=== PATIENT | female | born 1990 | race African-American/Black ===

== ENCOUNTER 2019-01-21 19:34 | Emergency (ER) | payer OTHER ==
[~2019-01-21] VITALS: Ht 144.8 cm; Wt 72.6 kg
--- NOTE | 2019-01-21 20:40 | PHYS DOC ---
Past Medical History Past Medical History: No Pertinent History (DAYANA SHAW APRN) Past Surgical History: (DAYANA SHAW APRN) Alcohol Use: None Drug Use: None (DAYANA SHAW APRN) Adult General Chief Complaint Chief Complaint: ABDOMINAL PAIN HPI HPI Patient is a 28 year old AA female who presents to the ER with complaints of lower abdominal pain, low back pain, increased urinary frequency, and cloudy urine that has gradually increased over the last 2 weeks. In addition, pt reports fatigue. She denies any irregular vaginal discharge, vaginal odor, or concerns of STI. She reports her LMP was 2 weeks ago and she has had a BTL. She denies any fever, nausea, vomiting, diarrhea, constipation, cough, or pelvic pain. She states the pain is located below her umbilicus and reports that the pain is sharp in nature, currently a 9/10 and the only thing that alleviates her pain is applying pressure to the area. Her last BM was 1-2 days ago and was normal per pt. (DAYANA SHAW APRN) Review of Systems Review of Systems Constitutional: Denies fever or chills [] Eyes: Denies changes HENT: Denies nasal congestion or sore throat [] Respiratory: Denies cough or shortness of breath [] Cardiovascular: No additional information not addressed in HPI [] GI: See HPI : See HPI Musculoskeletal: See HPI Integument: Denies rash or skin lesions [] Neurologic: Denies headache (DAYANA SHAW APRN) Current Medications Current Medications Current Medications Medications (Trade) Dose Ordered Sig/Khari Start Time Stop Time Status Last Admin Dose Admin Info (CONTRAST GIVEN -- Rx MONITORING) 1 each PRN DAILY PRN 01/21/19 22:00 01/22/19 00:37 DC Iohexol (Omnipaque 300 Mg/ml) 75 ml 1X ONCE 01/21/19 22:30 01/21/19 22:31 DC 01/21/19 22:12 75 ML Morphine Sulfate (Morphine Sulfate) 4 mg STK-MED ONCE 01/21/19 23:56 01/21/19 23:57 DC Ondansetron HCl (Zofran) 4 mg 1X ONCE 01/22/19 00:30 01/22/19 00:31 DC 01/21/19 23:58 4 MG (CAMMY BEE DO) Allergies Allergies Allergies Coded Allergies Type Severity Reaction Last Updated Verified No Known Drug Allergies 04/30/14 No (CAMMY BEE DO) Physical Exam Physical Exam Constitutional: Well developed, well nourished, no acute distress, non-toxic appearance. [] HENT: Normocephalic, atraumatic, bilateral external ears normal, oropharynx moist, nose normal. [] Eyes: conjunctiva normal, no discharge. [] Neck: Normal range of motion, no tenderness, supple, no stridor. [] Cardiovascular: Heart rate regular rhythm, no murmur [] Lungs & Thorax: Bilateral breath sounds clear to auscultation [] Abdomen: Bowel sounds normal, soft, no masses, no pulsatile masses; TTP superior to umbilicus Skin: Warm, dry, no erythema, no rash. [] Back: No CVA tenderness. [] Extremities: No cyanosis, ROM intact, no edema. [] Neurologic: Alert and oriented X 3, no focal deficits noted. [] Psychologic: Affect normal, judgement normal, mood normal. [] (DAYANA SHAW APRN) Current Patient Data Vital Signs Vital Signs Date Time Temp Pulse Resp B/P (MAP) Pulse Ox O2 Delivery O2 Flow Rate FiO2 01/21/19 23:58 16 100 Room Air 01/21/19 23:40 71 107/53 (71) 01/21/19 19:45 98.2 98.2 (CAMMY BEE DO) Lab Values Laboratory Tests Test 01/21/19 20:08 01/21/19 21:00 01/21/19 21:08 White Blood Count 4.1 x10^3/uL (4.0-11.0) Red Blood Count 4.26 x10^6/uL (3.50-5.40) Hemoglobin 11.6 g/dL (12.0-15.5) L Hematocrit 35.3 % (36.0-47.0) L Mean Corpuscular Volume 83 fL (79-100) Mean Corpuscular Hemoglobin 27 pg (25-35) Mean Corpuscular Hemoglobin Concent 33 g/dL (31-37) Red Cell Distribution Width 14.5 % (11.5-14.5) Platelet Count 189 x10^3/uL (140-400) Neutrophils (%) (Auto) 36 % (31-73) Lymphocytes (%) (Auto) 49 % (24-48) H Monocytes (%) (Auto) 7 % (0-9) Eosinophils (%) (Auto) 6 % (0-3) H Basophils (%) (Auto) 1 % (0-3) Neutrophils # (Auto) 1.5 x10^3uL (1.8-7.7) L Lymphocytes # (Auto) 2.0 x10^3/uL (1.0-4.8) Monocytes # (Auto) 0.3 x10^3/uL (0.0-1.1) Eosinophils # (Auto) 0.3 x10^3/uL (0.0-0.7) Basophils # (Auto) 0.0 x10^3/uL (0.0-0.2) Sodium Level 140 mmol/L (136-145) Potassium Level 3.6 mmol/L (3.5-5.1) Chloride Level 103 mmol/L (98-107) Carbon Dioxide Level 28 mmol/L (21-32) Anion Gap 9 (6-14) Blood Urea Nitrogen 16 mg/dL (7-20) Creatinine 0.8 mg/dL (0.6-1.0) Estimated GFR (Cockcroft-Gault) 104.9 BUN/Creatinine Ratio 20 (6-20) Glucose Level 83 mg/dL (70-99) Calcium Level 9.0 mg/dL (8.5-10.1) Total Bilirubin 0.5 mg/dL (0.2-1.0) Aspartate Amino Transferase (AST) 24 U/L (15-37) Alanine Aminotransferase (ALT) 50 U/L (14-59) Alkaline Phosphatase 55 U/L (46-116) Total Protein 7.9 g/dL (6.4-8.2) Albumin 3.8 g/dL (3.4-5.0) Albumin/Globulin Ratio 0.9 (1.0-1.7) L Lipase 118 U/L (73-393) Urine Collection Type Unknown Urine Color Yellow Urine Clarity Cloudy Urine pH 6.5 Urine Specific Zanoni 1.025 Urine Protein Negative mg/dL (NEG-TRACE) Urine Glucose (UA) Negative mg/dL (NEG) Urine Ketones (Stick) Negative mg/dL (NEG) Urine Blood Negative (NEG) Urine Nitrite Negative (NEG) Urine Bilirubin Negative (NEG) Urine Urobilinogen Dipstick 0.2 mg/dL (0.2 mg/dL) Urine Leukocyte Esterase Negative (NEG) Urine RBC Occ /HPF (0-2) Urine WBC Occ /HPF (0-4) Urine Squamous Epithelial Cells Mod /LPF Urine Bacteria 0 /HPF (0-FEW) Urine Mucus Mod /LPF POC Urine HCG, Qualitative Hcg negative (Negative) Laboratory Tests 01/21/19 20:08 Laboratory Tests 01/21/19 20:08 (CAMMY BEE DO) Lab Values Laboratory Tests Test 01/21/19 20:08 01/21/19 21:00 01/21/19 21:08 White Blood Count 4.1 x10^3/uL (4.0-11.0) Red Blood Count 4.26 x10^6/uL (3.50-5.40) Hemoglobin 11.6 g/dL (12.0-15.5) L Hematocrit 35.3 % (36.0-47.0) L Mean Corpuscular Volume 83 fL (79-100) Mean Corpuscular Hemoglobin 27 pg (25-35) Mean Corpuscular Hemoglobin Concent 33 g/dL (31-37) Red Cell Distribution Width 14.5 % (11.5-14.5) Platelet Count 189 x10^3/uL (140-400) Neutrophils (%) (Auto) 36 % (31-73) Lymphocytes (%) (Auto) 49 % (24-48) H Monocytes (%) (Auto) 7 % (0-9) Eosinophils (%) (Auto) 6 % (0-3) H Basophils (%) (Auto) 1 % (0-3) Neutrophils # (Auto) 1.5 x10^3uL (1.8-7.7) L Lymphocytes # (Auto) 2.0 x10^3/uL (1.0-4.8) Monocytes # (Auto) 0.3 x10^3/uL (0.0-1.1) Eosinophils # (Auto) 0.3 x10^3/uL (0.0-0.7) Basophils # (Auto) 0.0 x10^3/uL (0.0-0.2) Sodium Level 140 mmol/L (136-145) Potassium Level 3.6 mmol/L (3.5-5.1) Chloride Level 103 mmol/L (98-107) Carbon Dioxide Level 28 mmol/L (21-32) Anion Gap 9 (6-14) Blood Urea Nitrogen 16 mg/dL (7-20) Creatinine 0.8 mg/dL (0.6-1.0) Estimated GFR (Cockcroft-Gault) 104.9 BUN/Creatinine Ratio 20 (6-20) Glucose Level 83 mg/dL (70-99) Calcium Level 9.0 mg/dL (8.5-10.1) Total Bilirubin 0.5 mg/dL (0.2-1.0) Aspartate Amino Transferase (AST) 24 U/L (15-37) Alanine Aminotransferase (ALT) 50 U/L (14-59) Alkaline Phosphatase 55 U/L (46-116) Total Protein 7.9 g/dL (6.4-8.2) Albumin 3.8 g/dL (3.4-5.0) Albumin/Globulin Ratio 0.9 (1.0-1.7) L Lipase 118 U/L (73-393) Urine Collection Type Unknown Urine Color Yellow Urine Clarity Cloudy Urine pH 6.5 Urine Specific Zanoni 1.025 Urine Protein Negative mg/dL (NEG-TRACE) Urine Glucose (UA) Negative mg/dL (NEG) Urine Ketones (Stick) Negative mg/dL (NEG) Urine Blood Negative (NEG) Urine Nitrite Negative (NEG) Urine Bilirubin Negative (NEG) Urine Urobilinogen Dipstick 0.2 mg/dL (0.2 mg/dL) Urine Leukocyte Esterase Negative (NEG) Urine RBC Occ /HPF (0-2) Urine WBC Occ /HPF (0-4) Urine Squamous Epithelial Cells Mod /LPF Urine Bacteria 0 /HPF (0-FEW) Urine Mucus Mod /LPF POC Urine HCG, Qualitative Hcg negative (Negative) Laboratory Tests 01/21/19 20:08 Laboratory Tests 01/21/19 20:08 (DAYANA SHAW APRN) EKG EKG [] (DAYANA SHAW APRN) Radiology/Procedures Radiology/Procedures PROCEDURE: CT ABD PELV W/ IV CONTRST ONLY EXAM: CT Abdomen and Pelvis with IV contrast CLINICAL HISTORY: umbilical pain x 2 weeks COMPARISON: none TECHNIQUE: Helical CT of the abdomen and pelvis was performed following the administration of intravenous contrast. Axial, coronal and sagittal reformatted images were generated. PQRS compliance statement - One or more of the following individualized dose reduction techniques were utilized for this study: 1. Automated exposure control 2. Adjustment of the mA and/or kV according to patient size 3. Use of iterative reconstruction technique FINDINGS: Lower chest: 4 mm left lower lobe fissural lung nodule (image 1) is seen. Lung bases are otherwise clear. Abdomen and Pelvis: No focal liver lesion. Gallbladder is normal. No biliary ductal dilatation. Spleen is unremarkable. Adrenal glands and pancreas are unremarkable. Symmetric nephrograms. No focal renal lesion. No hydronephrosis. Appendix is normal. No small or large bowel dilatation. Moderate colonic stool content. Bladder wall thickening, cystitis. No abdominal pelvic ascites. Small fat-containing periumbilical hernia is seen. Bones: No evidence for acute cardiopulmonary process. IMPRESSION: 1. Small fat-containing periumbilical hernia is seen. 2. Gallbladder wall thickening may be seen with cystitis. 3. Moderate colonic stool content is seen. No evidence for bowel obstruction. 4. The appendix is normal.[] (DAYANA SHAW ETHICS MANAGER) Course & Med Decision Making Course & Med Decision Making Pertinent Labs and Imaging studies reviewed. (See chart for details) Dx: periumbilical hernia, abdominal pain DDx: UTI, SBO, IBS, CT revealed periumbilical hernia. Follow up with Dr. Barreto for further evaluation and treatment. Patient verbalized an understanding of home care, medications, follow-up, and return to ED instructions and was in agreement with the plan of care. [] (DAYANA SHAW ETHICS MANAGER) Dragon Disclaimer Dragon Disclaimer This electronic medical record was generated, in whole or in part, using a voice recognition dictation system. (DAYANA SHAW ETHICS MANAGER) Departure Departure Impression: Primary Impression: Periumbilical hernia Additional Impressions: Abdominal pain Constipation Disposition: HOME, SELF-CARE Condition: STABLE Referrals: SAILAJA BARRETO MD Patient Instructions: Hernia Additional Instructions: Increase fluids and fiber in diet to help with constipation. May try 1 capful of over the counter miralax daily to help with constipation. Follow up with Dr. Barreto for further evaluation and treatment of your hernia. Return to the ER if symptoms worsen. Attending Signature Attending Signature I have reviewed the PA/TOBACCO PREVENTION HEALTH EDUCATOR's note and plan of care. I was available for consultation as needed at all times during the patient's visit in the emergency department. I agree with the clinical impression, plan and disposition. (CAMMY BEE DO) Problem Qualifiers Additional Impressions: Abdominal pain Abdominal location: periumbilical Qualified Codes: R10.33 - Periumbilical pain Constipation Constipation type: unspecified constipation type Qualified Codes: K59.00 - Constipation, unspecified DAYANA SHAW APRN Jan 21, 2019 20:40 CAMMY BEE DO Jan 24, 2019 10:12
[2019-01-21 21:12] LABS: BILIRUBIN,URINE NEGATIVE (NEG); CLARITY,URINE CLOUDY; COLOR,URINE YELLOW; NITRITE,URINE NEGATIVE (NEG); PH,URINE 6.5; PROTEIN,URINE NEGATIVE (NEG-TRACE); UROBILINOGEN,URINE 0.2 mg/dL (0.2 mg/dL)
[2019-01-21 21:39] LABS: BACTERIA,URINE 0 /HPF (0-FEW); RBC,URINE OCC /HPF (0-2); SQUAMOUS EPITHELIAL CELL,UR MOD /LPF; WBC,URINE OCC /HPF (0-4)
[2019-01-21 21:50] LABS: BASO % 1 % (0-3); EOS # 0.3 x10^3/uL (0.0-0.7); EOS % 6 % (0-3); HEMATOCRIT 35.3 % (36.0-47.0); HEMOGLOBIN 11.6 g/dL (12.0-15.5); LYMPH % 49 % (24-48); MEAN CORPUSCULAR HEMOGLOBIN 27 pg (25-35); MEAN CORPUSCULAR HGB CONC 33 g/dL (31-37); MEAN CORPUSCULAR VOLUME 83 fL (79-100); MONO # 0.3 x10^3/uL (0.0-1.1); MONO % 7 % (0-9); NEUT # 1.5 x10^3uL (1.8-7.7); NEUT % 36 % (31-73); PLATELET COUNT 189 x10^3/uL (140-400); RED BLOOD COUNT 4.26 x10^6/uL (3.50-5.40); RED CELL DISTRIBUTION WIDTH 14.5 % (11.5-14.5); WHITE BLOOD COUNT 4.1 x10^3/uL (4.0-11.0)
[2019-01-21 21:58] LABS: CREATININE 0.8 mg/dL (0.6-1.0); GFR 104.9; POTASSIUM 3.6 mmol/L (3.5-5.1)
[2019-01-21] MEDS ORDERED: CONTRAST GIVEN. MC PRN (22:00)
[2019-01-21 22:04] LABS: ALBUMIN 3.8 g/dL (3.4-5.0); ALBUMIN/GLOBULIN RATIO 0.9 (1.0-1.7); TOTAL BILIRUBIN 0.5 mg/dL (0.2-1.0); TOTAL PROTEIN 7.9 g/dL (6.4-8.2)
[2019-01-21] MEDS ORDERED: IOHEXOL 300 MG/ML 100ML VIAL. IV ONE (22:30)
--- NOTE | 2019-01-21 23:03 | RAD ---
EXAM: CT Abdomen and Pelvis with IV contrast CLINICAL HISTORY: umbilical pain x 2 weeks COMPARISON: none TECHNIQUE: Helical CT of the abdomen and pelvis was performed following the administration of intravenous contrast. Axial, coronal and sagittal reformatted images were generated. PQRS compliance statement - One or more of the following individualized dose reduction techniques were utilized for this study: 1. Automated exposure control 2. Adjustment of the mA and/or kV according to patient size 3. Use of iterative reconstruction technique FINDINGS: Lower chest: 4 mm left lower lobe fissural lung nodule (image 1) is seen. Lung bases are otherwise clear. Abdomen and Pelvis: No focal liver lesion. Gallbladder is normal. No biliary ductal dilatation. Spleen is unremarkable. Adrenal glands and pancreas are unremarkable. Symmetric nephrograms. No focal renal lesion. No hydronephrosis. Appendix is normal. No small or large bowel dilatation. Moderate colonic stool content. Bladder wall thickening, cystitis. No abdominal pelvic ascites. Small fat-containing periumbilical hernia is seen. Bones: No evidence for acute cardiopulmonary process. IMPRESSION: 1. Small fat-containing periumbilical hernia is seen. 2. Gallbladder wall thickening may be seen with cystitis. 3. Moderate colonic stool content is seen. No evidence for bowel obstruction. 4. The appendix is normal. Electronically signed by: Massimo Weston MD (01/21/2019 11:00 PM) [facility]
[2019-01-21 23:40] VITALS: BP 107/53
[2019-01-21] MEDS ORDERED: MORPHINE SULFATE 4 MG/ML VIAL. ONE (23:56)
[2019-01-22] MEDS ORDERED: ONDANSETRON PF 4 MG/2 ML VIAL. IV ONE (00:30)
[2019-01-22] MEDS ORDERED: MORPHINE SULFATE 4 MG/ML VIAL. IV ONE (00:30)
== END 2019-01-22 | disposition home or self-care (01) ==
LOC: ER 19:34
DX: K42.9 Umbilical hernia without obstruction or gangrene (principal); K59.00 Constipation, unspecified
CPT/HCPCS: 36415; 74177; 80053; 81001; 81025; 83690; 85025; 96374; 96375; 99284; J2270; J2405; Q9967

== ENCOUNTER 2019-11-03 22:22 | Emergency (ER) | payer MEDICAID, OTHER ==
[2019-11-03 22:32] VITALS: BP 125/79
--- NOTE | 2019-11-03 23:13 | RAD ---
PA and lateral chest x-ray HISTORY: Cough. FINDINGS: Heart size normal. Mediastinal silhouette is normal. No pneumothorax, pulmonary opacities or pleural effusions. Bones are unremarkable. IMPRESSION: No acute process. Electronically signed by: Marco A Lee MD (11/03/2019 11:10 PM) [facility]
[2019-11-03] MEDS ORDERED: DEXAMETHASONE 4 MG TABLET PO ONE (23:15)
[2019-11-03] MEDS ORDERED: IPRATRPIUM/ALBUTEROL 0.5/2.5MG 3 ML NEBU. NEB ONE (23:15)
[2019-11-03] MEDS ORDERED: ALBU2.5V8 IH (23:21)
[2019-11-03] MEDS ORDERED: PRED20TA PO (23:21)
[2019-11-03] MEDS ORDERED: BENZ100C PO (23:21)
--- NOTE | 2019-11-03 23:22 | PHYS DOC ---
Past Medical History Past Medical History: No Pertinent History Past Surgical History: , Tubal ligation Additional Information: Nonsmoker Alcohol Use: None Drug Use: Marijuana Adult General Chief Complaint Chief Complaint: COUGH HPI HPI 29-year-old female presents with 3 day history of nonproductive cough and wheezing. Patient does report some left upper chest wall discomfort which is reproducible with palpation. Patient reports she had previously been diagnosed with influenza and started on Tamiflu a few weeks ago. Patient reports her symptoms did improve until 3 days ago. Patient denies tobacco smoking. Denies trauma. Denies . Denies leg swelling or calf tenderness. Denies history of DVT or PE. Review of Systems Review of Systems Constitutional: Denies fever or chills; reports generalized malaise Eyes: Denies redness or eye pain HENT: Reports nasal congestion; denies sore throat Respiratory: Reports cough and wheezing Cardiovascular: Ports left upper chest wall pain; denies palpitations GI: Denies abdominal pain, nausea, or vomiting : Denies dysuria or hematuria Musculoskeletal: Denies back pain or joint pain Integument: Denies rash or skin lesions Neurologic: Denies headache, focal weakness or sensory changes Complete systems were reviewed and found to be within normal limits, except as documented in this note. Current Medications Current Medications Current Medications Medications (Trade) Dose Ordered Sig/Khari Start Time Stop Time Status Last Admin Dose Admin Albuterol/ Ipratropium (Duoneb) 3 ml 1X ONCE 11/03/19 23:15 11/03/19 23:16 DC 11/03/19 23:22 3 ML Dexamethasone (Decadron) 10 mg 1X ONCE 11/03/19 23:15 11/03/19 23:16 DC Allergies Allergies Allergies Coded Allergies Type Severity Reaction Last Updated Verified No Known Drug Allergies 04/30/14 No Physical Exam Physical Exam Constitutional: Well developed, well nourished, no acute distress, non-toxic appearance HENT: Normocephalic, atraumatic, oropharynx moist Eyes: Conjunctiva normal, no discharge Neck: Normal range of motion, no tenderness, supple Cardiovascular: Heart rate normal, regular rhythm Lungs & Thorax: Bilateral breath sounds equal, scattered wheezing Abdomen: Soft, no tenderness Skin: Warm, dry, no erythema, no rash Extremities: No tenderness, ROM intact, no edema Neurologic: Alert and oriented X 3, no focal deficits noted Psychologic: Affect normal, judgement normal Current Patient Data Vital Signs Vital Signs Date Time Temp Pulse Resp B/P (MAP) Pulse Ox O2 Delivery O2 Flow Rate FiO2 11/03/19 23:21 98 Room Air 11/03/19 22:32 98.7 83 20 125/79 (94) 98.7 EKG EKG [] Radiology/Procedures Radiology/Procedures PROCEDURE: CHEST PA & LATERAL PA and lateral chest x-ray HISTORY: Cough. FINDINGS: Heart size normal. Mediastinal silhouette is normal. No pneumothorax, pulmonary opacities or pleural effusions. Bones are unremarkable. IMPRESSION: No acute process. Electronically signed by: Maroc A Lee MD (11/03/2019 11:10 PM) [facility] Course & Med Decision Making Course & Med Decision Making Pertinent Imaging studies reviewed. (See chart for details) Patient presents with history of present illness and physical exam consistent for bronchitis. Afebrile. Some scant wheezing noted on auscultation. Respiratory nebs provided. Oral steroid given. Chest x-ray without acute process. Patient stable for discharge with outpatient follow-up with PCP. Discussed findings and plan with patient, who acknowledges understanding and agreement. Dragon Disclaimer Dragon Disclaimer This electronic medical record was generated, in whole or in part, using a voice recognition dictation system. Departure Departure Impression: Primary Impression: Bronchitis Disposition: HOME, SELF-CARE Condition: STABLE Referrals: NO PCP (PCP) Patient Instructions: Acute Bronchitis, [id number] Scripts Prednisone (PREDNISONE) 20 Mg Tablet 2 TAB PO DAILY, #8 TAB Start this medication tomorrow, 11/04/19 Prov: CAMMY BEE DO 11/03/19 Benzonatate (TESSALON PERLE) 100 Mg Capsule 1 CAP PO TID PRN for COUGH, #21 CAP Prov: CAMMY BEE DO 11/03/19 Albuterol Sulfate (PROAIR HFA INHALER) 8.5 Gm Hfa.aer.ad 2 PUFF IH PRN Q4-6HRS PRN for wheezing for 21 Days, #1 INHALER 0 Refills Prov: CAMMY BEE DO 11/03/19 CAMMY BEE DO Nov 03, 2019 23:22
== END 2019-11-03 23:35 | disposition home or self-care (01) ==
LOC: ER 22:22
DX: J40 Bronchitis, not specified as acute or chronic (principal); R07.89 Other chest pain
CPT/HCPCS: 71046; 94640; 99284; J7620; J8540

== ENCOUNTER 2020-01-18 09:01 | Emergency (ER) | payer SELFPAY ==
[~2020-01-18] VITALS: Ht 152.4 cm; Wt 79.5 kg
[~2020-01-18 09:01] MED LIST: ALBU2.5V8 IH; BENZ100C PO; PRED20TA PO
--- NOTE | 2020-01-18 09:44 | PHYS DOC ---
Past Medical History Past Medical History: No Pertinent History Past Surgical History: , Tubal ligation Smoking Status: Never Smoker Alcohol Use: None Drug Use: Marijuana Adult General Chief Complaint Chief Complaint: SHORTNESS OF BREATH HPI HPI Patient is a 29 year old F who arrives to the hospital with complaints of shortness of breath, cough, sore throat, L ear pain and body aches. 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 Pt states she has a sharp pain in her L upper chest. She denies CAD or PE history. Review of Systems Review of Systems Constitutional: Denies fever. Reports chills HENT: Reports nasal congestion and sore throat and L ear pain. Respiratory: Reports cough and shortness of breath Cardiovascular: Reports left sided chest pain GI: Denies abdominal pain, nausea, vomiting, bloody stools or diarrhea Musculoskeletal: Denies back pain or joint pain. Reports L sided neck pain. Integument: Denies rash or skin lesions Neurologic: Denies headache, focal weakness or sensory changes All other systems were reviewed and found to be within normal limits, except as documented in this note. Current Medications Current Medications Current Medications Medications (Trade) Dose Ordered Sig/Khari Start Time Stop Time Status Last Admin Dose Admin Potassium Chloride (Klor-Con) 20 meq 1X ONCE 01/18/20 11:00 01/18/20 11:01 DC 01/18/20 11:06 20 MEQ Allergies Allergies Allergies Coded Allergies Type Severity Reaction Last Updated Verified No Known Drug Allergies 04/30/14 No Physical Exam Physical Exam Constitutional: Well developed, well nourished, no acute distress, non-toxic appearance. HENT: Normocephalic, atraumatic, oropharynx moist, no oral exudates, nose normal. Pharyngeal erythema, L TM erythema and retraction. Eyes: PERRLA, EOMI, conjunctiva normal, no discharge. Neck: Normal range of motion, supple, no stridor. No meningismus, L sided anterior cervical lymphadenopathy Cardiovascular:Heart rate regular rhythm, no murmur Lungs & Thorax: Bilateral breath sounds clear to auscultation Abdomen: Bowel sounds normal, soft, no tenderness, no masses, no pulsatile masses. Skin: Warm, dry, no erythema, no rash. Back: No tenderness, no CVA tenderness. Extremities: No tenderness, no cyanosis, no clubbing, ROM intact, no edema. Neurologic: Alert and oriented X 3, normal motor function, normal sensory function, no focal deficits noted. Psychologic: Affect normal, judgement normal, mood normal. Current Patient Data Vital Signs Vital Signs Date Time Temp Pulse Resp B/P (MAP) Pulse Ox O2 Delivery O2 Flow Rate FiO2 01/18/20 11:05 86 16 110/57 (74) 100 Room Air 01/18/20 09:05 98.6 98.6 Lab Values Laboratory Tests Test 01/18/20 09:18 01/18/20 09:30 01/18/20 09:51 Influenza Type A Antigen Negative (NEGATIVE) Influenza Type B Antigen Negative (NEGATIVE) White Blood Count 3.9 x10^3/uL (4.0-11.0) L Red Blood Count 4.06 x10^6/uL (3.50-5.40) Hemoglobin 10.5 g/dL (12.0-15.5) L Hematocrit 32.3 % (36.0-47.0) L Mean Corpuscular Volume 79 fL (79-100) Mean Corpuscular Hemoglobin 26 pg (25-35) Mean Corpuscular Hemoglobin Concent 33 g/dL (31-37) Red Cell Distribution Width 15.1 % (11.5-14.5) H Platelet Count 175 x10^3/uL (140-400) Neutrophils (%) (Auto) 38 % (31-73) Lymphocytes (%) (Auto) 47 % (24-48) Monocytes (%) (Auto) 7 % (0-9) Eosinophils (%) (Auto) 8 % (0-3) H Basophils (%) (Auto) 1 % (0-3) Neutrophils # (Auto) 1.5 x10^3/uL (1.8-7.7) L Lymphocytes # (Auto) 1.9 x10^3/uL (1.0-4.8) Monocytes # (Auto) 0.3 x10^3/uL (0.0-1.1) Eosinophils # (Auto) 0.3 x10^3/uL (0.0-0.7) Basophils # (Auto) 0.0 x10^3/uL (0.0-0.2) D-Dimer (Esther) < 0.27 ug/mlFEU Sodium Level 142 mmol/L (136-145) Potassium Level 3.3 mmol/L (3.5-5.1) L Chloride Level 105 mmol/L (98-107) Carbon Dioxide Level 26 mmol/L (21-32) Anion Gap 11 (6-14) Blood Urea Nitrogen 12 mg/dL (7-20) Creatinine 0.7 mg/dL (0.6-1.0) Estimated GFR (Cockcroft-Gault) 121.5 BUN/Creatinine Ratio 17 (6-20) Glucose Level 97 mg/dL (70-99) Calcium Level 8.7 mg/dL (8.5-10.1) Total Bilirubin 0.4 mg/dL (0.2-1.0) Aspartate Amino Transferase (AST) 18 U/L (15-37) Alanine Aminotransferase (ALT) 34 U/L (14-59) Alkaline Phosphatase 46 U/L (46-116) Creatine Kinase 292 U/L (26-192) H Creatine Kinase MB (Mass) 1.1 ng/mL (0.0-3.6) Creatine Kinase MB Relative Index 0.4 % (0-4) Troponin I Quantitative < 0.017 ng/mL (0.000-0.055) Total Protein 7.3 g/dL (6.4-8.2) Albumin 3.6 g/dL (3.4-5.0) Albumin/Globulin Ratio 1.0 (1.0-1.7) Group A Streptococcus Rapid Negative (NEGATIVE) Laboratory Tests 01/18/20 09:30 Laboratory Tests 01/18/20 09:30 EKG EKG EKG shows NSR,rate of 70 bpm, No STEMI, read by Dr. Berry Radiology/Procedures Radiology/Procedures CXR: neg Course & Med Decision Making Course & Med Decision Making Pt's tests including CXR, cardiac testing, Ddimer, flu and strep all negative. Discussed that we cannot rule out Coronavirus at this time but that since she appears stable, they are not recommending testing but that we treat everyone with flu like symptoms like they have it. This involves symptomatic treatment and quarantine for 14 days. Pt to return with any worsening symptoms including shortness of breath, dehydration or high fevers. Dragon Disclaimer Dragon Disclaimer This electronic medical record was generated, in whole or in part, using a voice recognition dictation system. Departure Departure Impression: Primary Impression: Otitis media Additional Impression: Viral syndrome Disposition: HOME, SELF-CARE Condition: STABLE Referrals: NO PCP (PCP) Patient Instructions: Otitis Media, Adult, [id number], Viral Syndrome Additional Instructions: Rest, push fluids, treat symptoms. We cannot rule out Coronavirus, or CoVid 19 at this time and with your symptoms and travel, we would recommend you be treated like you have it. The treatment is stay at home and be quarantined away from general population and limit exposu re to your family and friends. Disinfect your home and surroundings often. Return to ER if you develop any trouble breathing or increased severity of symptoms, otherwise try to stay away from hospital or clinics. Scripts Amoxicillin (AMOXICILLIN) 500 Mg Capsule 1 CAP PO TID, #30 CAP Prov: VADIM LEBLANC 01/18/20 Promethazine HCl/Codeine (Prometh-Codein 6.25-10 mg/5 ml) 5 Ml Syrup 5 ML PO PRN Q4-6HRS PRN for cough MDD 30 Milliliter(s), #120 ML 0 Refills Prov: VADIM LEBLANC 01/18/20 Problem Qualifiers VADIM LEBLANC Jan 18, 2020 09:44
--- NOTE | 2020-01-18 09:58 | RAD ---
CHEST AP ONLY Clinical indications: Cough and shortness of breath and chest pain COMPARISON: November 03, 2019. Findings: No acute lung infiltrate or pleural effusion or pulmonary edema or lung mass or pneumothorax is seen. The heart size, pulmonary vasculature, mediastinum and both dannie are unremarkable. Impression: No acute radiographic abnormality is seen. Electronically signed by: Will Morton MD (01/18/2020 9:55 AM) [id number]
[2020-01-18 10:00] LABS: INFLUENZA A PATIENT NEGATIVE (NEGATIVE); INFLUENZA B PATIENT NEGATIVE (NEGATIVE)
[2020-01-18 10:01] LABS: BASO % 1 % (0-3); EOS # 0.3 x10^3/uL (0.0-0.7); EOS % 8 % (0-3); HEMATOCRIT 32.3 % (36.0-47.0); HEMOGLOBIN 10.5 g/dL (12.0-15.5); LYMPH # 1.9 x10^3/uL (1.0-4.8); LYMPH % 47 % (24-48); MEAN CORPUSCULAR HEMOGLOBIN 26 pg (25-35); MEAN CORPUSCULAR HGB CONC 33 g/dL (31-37); MEAN CORPUSCULAR VOLUME 79 fL (79-100); MONO # 0.3 x10^3/uL (0.0-1.1); MONO % 7 % (0-9); NEUT # 1.5 x10^3/uL (1.8-7.7); NEUT % 38 % (31-73); PLATELET COUNT 175 x10^3/uL (140-400); RED BLOOD COUNT 4.06 x10^6/uL (3.50-5.40); RED CELL DISTRIBUTION WIDTH 15.1 % (11.5-14.5); WHITE BLOOD COUNT 3.9 x10^3/uL (4.0-11.0)
[2020-01-18 10:02] LABS: CALCIUM 8.7 mg/dL (8.5-10.1); CREATININE 0.7 mg/dL (0.6-1.0); GFR 121.5; POTASSIUM 3.3 mmol/L (3.5-5.1)
[2020-01-18 10:09] LABS: ALBUMIN 3.6 g/dL (3.4-5.0); TOTAL BILIRUBIN 0.4 mg/dL (0.2-1.0); TOTAL PROTEIN 7.3 g/dL (6.4-8.2)
[2020-01-18] MEDS ORDERED: PROM5SYR2 PO (11:00)
[2020-01-18 11:05] VITALS: BP 110/57
[2020-01-18] MEDS: POTASSIUM CHLORIDE 20 MEQ TABLET.ER. PO ONE (11:06)
[2020-01-18] MEDS ORDERED: AMOX500C PO (11:18)
== END 2020-01-18 11:18 | disposition home or self-care (01) ==
LOC: ER 09:01
DX: H66.92 Otitis media, unspecified, left ear (principal); R06.02 Shortness of breath; R05 Cough; F12.90 Cannabis use, unspecified, uncomplicated; Z98.51 Tubal ligation status; Z98.890 Other specified postprocedural states
CPT/HCPCS: 36415; 71045; 80053; 82553; 84484; 85025; 85379; 87070; 87804; 87880; 99285

== ENCOUNTER 2021-09-04 23:04 | Emergency (ER) | payer MEDICAID ==
[~2021-09-04 23:04] MED LIST changes: +AMOX500C PO; +PROM5SYR2 PO
[2021-09-05] MEDS ORDERED: PENI500T PO (09:00)
[2021-09-05] MEDS ORDERED: HYDR-2761 PO (09:00)
[2021-09-05] MEDS ORDERED: CHLO15MO2 PO (09:00)
== END 2021-09-05 00:20 | disposition left against medical advice (07) ==
LOC: ER 23:04
DX: K08.89 Other specified disorders of teeth and supporting structures (principal); Z53.21 Procedure and treatment not carried out due to patient leaving prior to being seen by health care provider

== ENCOUNTER 2021-09-05 00:49 | Emergency (ER) | payer MEDICAID ==
[2021-09-05] MEDS ORDERED: CHLO15MO2 PO (09:00)
[2021-09-05] MEDS ORDERED: HYDR-2761 PO (09:00)
[2021-09-05] MEDS ORDERED: PENI500T PO (09:00)
== END 2021-09-05 00:58 | disposition left against medical advice (07) ==
LOC: ER 00:49
DX: K08.89 Other specified disorders of teeth and supporting structures (principal); Z53.21 Procedure and treatment not carried out due to patient leaving prior to being seen by health care provider

== ENCOUNTER 2021-09-05 08:06 | Emergency (ER) | payer MEDICAID ==
[~2021-09-05] VITALS: Ht 152.4 cm; Wt 80.9 kg
[2021-09-05 08:13] VITALS: BP 132/74
--- NOTE | 2021-09-05 08:24 | PHYS DOC ---
Past Medical History Past Medical History: No Pertinent History Past Surgical History: , Tubal ligation Smoking Status: Never Smoker Alcohol Use: None Drug Use: Marijuana General Adult EDM: Chief Complaint: DENTAL PROBLEM HPI: HPI: Patient is a 31 year old female who presents with left lower dental pain. She has a dental appointment tomorrow, but she reports that the pain was too severe, so she came to the ER. She has not taken any medications today for pain, though she has previously taken ibuprofen. She denies any facial swelling. Denies fevers or chills. Denies any acute trauma or injury. She knows she has a broken tooth and a cavity that she needs to have formal dental care for. No other complaints. Review of Systems: Review of Systems: Constitutional: Denies fever or chills. [] HENT: Denies nasal congestion or sore throat. Left lower dental pain. Respiratory: Denies cough or shortness of breath. [] Cardiovascular: Denies chest pain GI: Denies nausea or vomiting Neurologic: Denies headache or dizziness. Heart Score: C/O Chest Pain: No Risk Factors: Risk Factors: DM, Current or recent (<one month) smoker, HTN, HLP, family history of CAD, obesity. Risk Scores: Score 0 - 3: 2.5% MACE over next 6 weeks - Discharge Home Score 4 - 6: 20.3% MACE over next 6 weeks - Admit for Clinical Observation Score 7 - 10: 72.7% MACE over next 6 weeks - Early Invasive Strategies Allergies: Allergies: Allergies Coded Allergies Type Severity Reaction Last Updated Verified No Known Drug Allergies 04/30/14 No Physical Exam: PE: Constitutional: Well developed, well nourished, no acute distress, non-toxic appearance. [] HENT: Normocephalic, atraumatic, oropharynx is patent and clear. Dukas membranes are moist. Left lower first molar dental caries, mild percussion tenderness, no drainage, minimal surrounding gingival erythema, no drainage. No facial or oral edema or swelling. No synovial or swelling. No drooling or trismus. Eyes: Sclera are clear and anicteric Neck: Normal range of motion, no tenderness, supple, no stridor. [] Cardiovascular: Well-perfused appearing Lungs & Thorax: Respirations are nonlabored Extremities: No deformity, no peripheral edema Neurologic: Alert and oriented X 3, ambulatory with a steady gait speech is clear and fluent, no facial asymmetry Psychologic: She is anxious but cooperative and pleasant. EKG: EKG: [] Radiology/Procedures: Radiology/Procedures: [] Course & Med Decision Making: Course & Med Decision Making She was offered a dental block, which she tolerated well. She is given a first dose of penicillin. I discussed the findings, differential diagnosis and plan of care with her. No sedating medications could be given as she drove here today. She should keep her appointment with her dentist as scheduled tomorrow. Home care instructions given, including recommending eating a soft diet. R eturn precautions are given. Dragon Disclaimer: Dragon Disclaimer: This electronic medical record was generated, in whole or in part, using a voice recognition dictation system. Departure Departure Impression: Primary Impression: Pain due to dental caries Disposition: HOME / SELF CARE / HOMELESS Condition: STABLE Referrals: NO PCP (PCP) Patient Instructions: Dental Caries Additional Instructions: Take medications as prescribed. Keep your appointment with your dentist tomorrow. Return to the ER immediately for any shortness of breath, severe facial swelling, inability to control secretions, difficulty swallowing, shortness of breath or any other concerns. Scripts Chlorhexidine Gluconate (PERIDEX) 15 Ml Mouthwash 15 ML PO BID for 7 Days, #480 ML 0 Refills Prov: MARY JOHNSONN Lucas DO 09/05/21 Penicillin V Potassium (PENICILLIN V POTASSIUM) 500 Mg Tablet 1 TAB PO QID for 7 Days, #28 TAB Prov: ELIZABETHGATO Lucas DO 09/05/21 Hydrocodone Bit/Acetaminophen (HYDROCODONE-APAP 5-325 ) 1 Tab Tablet 1 TAB PO PRN Q6HRS PRN for PAIN, #15 TAB 0 Refills Prov: GATO JOHNSON Lucas DO 09/05/21 ELIZABETHGATO M DO Sep 05, 2021 08:24
[2021-09-05] MEDS ORDERED: PENICILLIN V K 250 MG TABLET. PO ONE (08:45)
[2021-09-05] MEDS ORDERED: CHLO15MO2 PO (09:00)
[2021-09-05] MEDS ORDERED: HYDR-2761 PO (09:00)
[2021-09-05] MEDS ORDERED: PENI500T PO (09:00)
== END 2021-09-05 09:07 | disposition home or self-care (01) ==
LOC: ER 08:06
DX: K02.9 Dental caries, unspecified (principal); K08.89 Other specified disorders of teeth and supporting structures
CPT/HCPCS: 99283